=== PATIENT | female | born 1965 | race African-American/Black ===

== ENCOUNTER 2022-12-31 14:57 | Emergency (ER) | payer MEDICARE ==
[~2022-12-31] VITALS: Ht 177.8 cm; Wt 52.0 kg
[2022-12-31 15:02] VITALS: BP 140/90
[2022-12-31] MEDS ORDERED: ONDANSETRON 4MG ODT PO ONE (15:45)
== END 2022-12-31 15:30 | disposition home or self-care (01) ==
LOC: ER 14:57
DX: Z00.00 Encounter for general adult medical examination without abnormal findings (principal)
CPT/HCPCS: 99283; Q0162